=== PATIENT | female | born 1980 | race Caucasian/White ===

== ENCOUNTER 2016-08-28 10:43 | Emergency (ER) | payer MEDICAID ==
[~2016-08-28] VITALS: Ht 160 cm; Wt 54.7 kg
[~2016-08-28 10:43] MED LIST: PRENCAP6 PO
[2016-08-28 10:48] VITALS: BP 115/64; PULSE 83; RESP 16; TEMP 98.7
[2016-08-28 11:42] LABS: GLUCOSE,URINE NEG (NEG); KETONE, URINE NEG (NEG); NITRITE,URINE NEG (NEG); PH, URINE 6.5 (5.0-8.5)
[2016-08-28 11:43] LABS: BLOOD, URINE MOD (NEG)
[2016-08-28 11:46] LABS: METHOD OF COLLECTION CLEAN CATCH
[2016-08-28 11:47] LABS: URINE COLOR STRAW (YELLW/STRAW)
--- NOTE | 2016-08-28 11:58 | PD ---
HPI . Bleeding in Chief Complaint: Related Problem Time Seen by Provider: 10:57 Travel History International Travel<30 days: No Contact w/Intl Traveler<30days: No Traveled to known affect area: No History of Present Illness HPI Patient presents saying that she is 6-7 weeks and she had some mild bleeding 2 days ago. The bleeding has stopped. She reports minimal right- sided pain associated with the bleeding. She describes the bleeding is bright red. She denies any urinary symptoms. She does admit to some nausea and fatigue. She states her last normal menstrual cycle was about 7 weeks ago. She has not done a home test and has not sought any care. [facility] Past Medical History Diminished Hearing: No Immunizations Current: No Tetanus Vaccination: > 5 Years Influenza Vaccination: Yes ?: Not LMP: 07/03/16 : 4 Para: 1 Miscarriage: 2 Past Surgical History Pacemaker: No Social History Alcohol Use: No Tobacco Use: No Substance Use: No Allergies-Medications (Allergen,Severity, Reaction): Coded Allergies: No Known Allergies (Verified , 08/28/16) Reported Meds & Prescriptions Reported Meds & Active Scripts Active No Active Prescriptions or Reported Medications Review of Systems Except as stated in HPI: all other systems reviewed are Neg General / Constitutional: No: Fever, Chills Genitourinary: Positive: Pelvic Pain, Vaginal Bleeding, No: Urgency, Frequency , Dysuria, Dyspareunia, Discharge Physical Exam Narrative GENERAL: Healthy woman in no acute distress. SKIN: Warm and dry. HEAD: Atraumatic. Normocephalic. EYES: Pupils equal and round. ENT: No nasal bleeding or discharge. Mucous membranes pink and moist. NECK: Trachea midline. CARDIOVASCULAR: Regular rate and rhythm. RESPIRATORY: No accessory muscle use. GASTROINTESTINAL: Abdomen soft, non-tender, nondistended. : Normal female. There is no blood or discharge in the vaginal vault. Cervical os is closed. Positive cervical motion tenderness. There is no adnexal tenderness or mass. Uterus is slightly enlarged and nontender. MUSCULOSKELETAL: No obvious deformities. No edema. NEUROLOGICAL: Awake and alert. No obvious cranial nerve deficits. Motor grossly within normal limits. Normal speech. PSYCHIATRIC: Appropriate mood and affect; insight and judgment normal. Data Data Last Documented VS Vital Signs Date Time Temp Pulse Resp B/P Pulse Ox O2 Delivery O2 Flow Rate FiO2 08/28/16 10:48 98.7 83 16 115/64 Orders Beta Hcg (Quant/Titer) (08/28/16 10:57) Urinalysis - C+S If Indicated (08/28/16 10:57) Ed Urine Pregnancytest Poc (08/28/16 10:57) Ed Poc Ultrasound (08/28/16 11:21) Gc And Chlamydia Pcr (08/28/16 11:45) Wet Prep Profile (08/28/16 11:45) Us Pelvis (Ques Preg/Ectopic) (08/28/16 ) Labs Laboratory Tests Test 08/28/16 08/28/16 11:25 11:55 Urine Collection Type CLEAN CATCH Urine Color STRAW Urine Turbidity HAZY Urine pH 6.5 Urine Specific [place] 1.007 Urine Protein NEG mg/dL Urine Glucose (UA) NEG mg/dL Urine Ketones NEG mg/dL Urine Occult Blood MOD Urine Nitrite NEG Urine Bilirubin NEG Urine Leukocyte Esterase TRACE Urine RBC 0-3 /hpf Urine WBC 0-2 /hpf Urine Squamous Epithelial 6-8 /hpf Cells Urine Bacteria FEW /hpf Microscopic Urinalysis Comment CULT NOT INDICATED Urine Collection Time 1125 Human Chorionic Gonadotropin, 229802 MIU/ML Quant Clue Cells (Wet Prep) PRESENT Vaginal Trichomonas (Wet Prep) NONE SEEN Vaginal Yeast (Wet Prep) NONE SEEN MDM Medical Decision Making Medical Screen Exam Complete: Yes Emergency Medical Condition: Yes Differential Diagnosis Differential diagnosis of bleeding in includes but is not limited to physiologic bleeding, spontaneous AB, ectopic , placenta previa Narrative Course Patient presents complaining with an episode of bleeding in . Her blood type from previous records is O+. Quantitative hCG and formal ultrasound are pending. Wet prep and GC/chlamydial DNA probe are also pending. UA shows trace leukocyte esterase and few bacteria. Quantitative hCG is 125K. Wet prep shows clue cells. Last Impressions Pelvis Ultrasound 08/28/16 0000 Signed Impressions: Service Date/Time: Sunday, August 28, 2016 12:45 - CONCLUSION: 1. Twin gestation, both with documented heart tones. Martin Dailey MD Procedures Procedure Narrative Emergency Department Pelvic ultrasound was performed with patient consent. The curvilinear probe was used in the transverse and sagittal views within the suprapubic region revealing positive intrauterine . heart tones are present but not measurable. Diagnosis Primary Impression: Bleeding in early Additional Impression: Twin Qualified Code: O30.001 - Twin gestation in first trimester, unspecified multiple gestation type Scripts No Active Prescriptions or Reported Meds Disposition: 01 DISCHARGE HOME Condition: Stable Liza Dunne MD Aug 28, 2016 11:58
[2016-08-28 12:04] LABS: BACTERIA, URINE FEW /hpf; RBC, URINE 0-3 /hpf (0-3); WBC, URINE 0-2 /hpf (0-5)
[2016-08-28 12:05] LABS: COMMENT (UR) CULT NOT INDICATED; CULTURE IF INDICATED CULT NOT INDICATED
[2016-08-28 12:15] LABS: BETA HCG QUANT 125529 MIU/ML (0-5)
--- NOTE | 2016-08-28 13:25 | RADHPO ---
EXAM DATE/TIME: 08/28/2016 12:45 [place] COMPARISON: No previous studies available for comparison. INDICATIONS : Vaginal bleeding and pelvic pain with . LAB(S): Beta-hC MEDICAL HISTORY : . SURGICAL HISTORY : None. ENCOUNTER: Initial ACUITY: 1 day PAIN SCORE: 3/10 LOCATION: Bilateral pelvis MEASUREMENTS: UTERUS: 11.8 x 7.9 x 4.8 cm ENDOMETRIAL STRIPE: 13 mm RIGHT OVARY: 3.3 x 3.0 x 1.7 cm LEFT OVARY: 2.4 x 1.8 x 1.3 cm FREE FLUID: No FINDINGS: Intrauterine gestational sac with a mean sac diameter corresponding to a gestational age of 7 weeks 3 days. Within the gestational sac, yolk sac is present as well as a pole with a crown-rump soledad th measurement corresponding to an estimated gestational age of 8 weeks. An additional gestational sa c containing pole is present with an estimated gestational age of 7 weeks 4 days based on crown -rump length measurement. heart rate of 172.3 beats per minute and 164.6 beats per minute respe ctively. The ovaries are normal. There is no free fluid seen. CONCLUSION: 1. Twin gestation, both with documented heart tones. Martin Dailey MD on August 28, 2016 at 13:21 Board Certified Radiologist. This report was verified electronically.
[2016-08-28 14:00] VITALS: BP 144/79; PULSE 98; RESP 14; O2SAT 100
[2016-08-28] MEDS ORDERED: MACR100C2 PO (14:01)
[2016-08-28] MEDS ORDERED: METR250 PO (14:01)
[2016-08-28 18:13] LABS: CHLAMYDIA PCR NOT DETECTED (NOT DETECT); NEISSERIA PCR NOT DETECTED (NOT DETECT)
== END 2016-08-28 14:21 | disposition home or self-care (01) ==
LOC: PHED 10:43
DX: O20.9 Hemorrhage in early pregnancy, unspecified (principal); O30.001 Twin pregnancy, unspecified number of placenta and unspecified number of amniotic sacs, first trimester; Z3A.01 Less than 8 weeks gestation of pregnancy
CPT/HCPCS: 76700; 81001; 84702; 84703; 87210; 87491; 87591

== ENCOUNTER → 2016-10-04 | Outpatient (CLI) | payer SELFPAY | LOC: HPND 12:28 | PROVIDERS: ATTEND Obstetrics & Gynecology | DX: O09.521 Supervision of elderly multigravida, first trimester (principal); O30.031 Twin pregnancy, monochorionic/diamniotic, first trimester; Z3A.13 13 weeks gestation of pregnancy | CPT/HCPCS: 76801 ==

== ENCOUNTER → 2016-11-15 | Outpatient (CLI) | payer SELFPAY | LOC: HPND 08:40 | PROVIDERS: ATTEND Obstetrics & Gynecology | DX: O28.0 Abnormal hematological finding on antenatal screening of mother (principal); O09.522 Supervision of elderly multigravida, second trimester; O30.002 Twin pregnancy, unspecified number of placenta and unspecified number of amniotic sacs, second trimester | CPT/HCPCS: 76811 ==

== ENCOUNTER 2017-04-16 23:26 | Inpatient (IN) | payer SELFPAY ==
[~2017-04-16] VITALS: Ht 160 cm; Wt 72.0 kg
[2017-04-17] VITALS (42 sets, daily range): BP systolic 87–166; BP diastolic 51–110; PULSE 53–205; RESP 16–20; TEMP 97.9–98.8
[2017-04-17] MEDS ORDERED: LACTATED RINGER'S 1000 ML INJ 1,000 ML IV SCH (00:32)
[2017-04-17] MEDS ORDERED: LACTATED RINGER'S 1000 ML INJ 1,000 ML IV PRN (00:32)
[2017-04-17 00:43] LABS: AUTOMATED NEUTROPHIL # 6.4 TH/MM3 (1.8-7.7); BASOPHIL # 0.1 TH/MM3 (0-0.2); BASOPHIL % 0.5 % (0.0-2.0); EOSINOPHIL # 0.1 TH/MM3 (0-0.4); EOSINOPHIL % 0.7 % (0.0-4.0); HEMATOCRIT 33.2 % (35.0-46.0); HEMO FLAGS DIFF FINAL; LYMPH % 28.4 % (9.0-44.0); LYMPHOCYTE # 2.8 TH/MM3 (1.0-4.8); MEAN CELL VOLUME 92.8 FL (80.0-100.0); MEAN CORPUSCULAR HEMOGLOBIN 32.8 PG (27.0-34.0); MEAN CORPUSCULAR HGB CONC 35.4 % (32.0-36.0); MONO % 6.6 % (0.0-8.0); NEUT % 63.8 % (16.0-70.0); PLATELET COUNT 254 TH/MM3 (150-450); RED BLOOD COUNT 3.58 MIL/MM3 (4.00-5.30); RED CELL DISTRIBUTION WIDTH 12.9 % (11.6-17.2)
[2017-04-17 00:44] LABS: BLOOD, URINE NEG (NEG); GLUCOSE,URINE NEG (NEG); KETONE, URINE NEG (NEG); NITRITE,URINE NEG (NEG); SQUAMOUS EPITHELIAL CELL URINE <1 /hpf (0-5); URINE COLOR COLORLESS (YELLW/STRAW)
[2017-04-17 00:45] LABS: COMMENT (UR) CULT NOT INDICATED; CULTURE IF INDICATED CULT NOT INDICATED
[2017-04-17] MEDS ORDERED: LIDOCAINE HCL 1% 50 ML VIAL INFIL PRN (00:45)
[2017-04-17] MEDS ORDERED: OXYTOCIN 30 UNITS-500ML PREMIX 500 ML IV ONE (00:45)
[2017-04-17] MEDS ORDERED: CITRIC ACID-SODIUM CITRATE LIQ 30 ML UDC PO SCH (00:45)
[2017-04-17] MEDS ORDERED: MINERAL OIL 10 ML VIAL TOPICAL PRN (00:45)
[2017-04-17] MEDS ORDERED: SODIUM CHLORID 0.9% 500 ML INJ 500 ML IV PRN (00:45)
[2017-04-17] MEDS ORDERED: LIDOCAINE HCL 1% 50 ML VIAL I-DERMAL PRN (00:45)
--- NOTE | 2017-04-17 00:46 | HHI.HP ---
HPI Chief Complaint Patient presents for labor induction for postdates Date Seen: Apr 17, 2017 Time Seen: 00:40 Travel History International Travel<30 Days: No Contact w/Intl Traveler<30Days: No Known Affected Area: No History of Present Illness HPI Patient is 36-year-old G 2 P1 at 41 weeks who [facility] and is presenting now for induction of labor due to postdates having an inducible cervix, heart rate tracing is reactive and she is having occasional contractions. Weeks Gestation: 41 Para: 1 : 2 History Obstetric History Obstetric History One vaginal delivery Social History Alcohol Use: No Tobacco Use: No Substance Abuse: No Allergies-Medications (Allergen,Severity, Reaction): Coded Allergies: No Known Allergies (Verified Adverse Reaction, Unknown, 04/16/17) Home Meds Active Scripts W/O Vit A W/ Fe Fumar (Citranatal [place]) 27-1-260 Mg Cap Prov:Nathanael Leo MD 09/20/16 Review of Systems General / Constitutional: No: Fever, Weight Gain, Chills, Other Eyes: No: Diploplia, Blurred Vision, Visual changes, Pain, Photophobia HENT: No: Headaches, Vertigo, Lightheadedness Cardiovascular: No: Irregular Rhythm, Chest Pain or Discomfort, Palpitations, Tachycardia, Syncope, Varicosities, Edema, Cyanosis Respiratory: No: Cough, Short of Breath, Other Gastrointestinal: No: Nausea, Vomiting, Diarrhea Genitourinary: No: Decreased Urinary Output, Oliguria Musculoskeletal: No: Limited ROM, Weakness, Cramping, Edema, Pain Skin: No Rash, No Itching, No Dryness, No Lumps, No Change in Pigmentation, No Change in Nails, No Alopecia, No Lesions Neurologic: No: Weakness, Dizziness, Syncope, Focal Abnormalities, Coordination Problem, Headache, Slurred Speech, Seizures Psychiatric: No: Depression, Suicidal Ideations, Homicidal Ideation Endocrine: No: Heat Intolerance, Cold Intolerance, Polydipsia, Polyuria, Other Physical Exam Narrative GENERAL: Well-nourished, well-developed patient. SKIN: Warm and dry. HEAD: Normocephalic and atraumatic. EYES: No scleral icterus. No injection or drainage. ENT: No nasal drainage noted. Mucous membranes pink. Airway patent. NECK: Supple, trachea midline. No JVD. CARDIOVASCULAR: Regular rate and rhythm without murmurs, gallops, or rubs. RESPIRATORY: Breath sounds equal bilaterally. No accessory muscle use. BREASTS: Bilateral exam showed no masses , no retractions, no nipple discharge. ABDOMEN/GI: Abdomen soft, non-tender, bowel sounds present, no rebound, no guarding Gravid to [41-] weeks size Fundal Height: [37-] GENITOURINARY: External Genitalia: intact and normal in appearance BUS glands: [-] Cervix: [-] Dilatation: [-5] Effacement: [-70] Station: [-1] Presentation: [vtx-] Membranes: [intact ] Uterine Contractions: [-Occasional] FHT's: Category: [1-] Baseline: [-133] Reactive: [yes-] Variability: [-mod] Decels: [0-] EXTREMITIES: No cyanosis or edema. BACK: Nontender without obvious deformity. No CVA tenderness. NEUROLOGICAL: Awake and alert. Motor and sensory grossly within normal limits. Five out of 5 muscle strength in all muscle groups. Normal speech. Caprini VTE Risk Assessment Caprini VTE Risk Assessment: No/Low Risk (score <= 1) Caprini Risk Assessment Model Point Value = 1 Point Value = 2 Point Value = 3 Point Value = 5 Age 41-60 Minor surgery BMI > 25 kg/m2 Swollen legs Varicose veins or History of unexplained or recurrent spontaneous Oral contraceptives or hormone replacement Sepsis (< 1 month) Serious lung disease, including pneumonia (< 1 month) Abnormal pulmonary function Acute myocardial infarction Congestive heart failure (< 1 month) History of inflammatory bowel disease Medical patient at bed rest Age 61-74 Arthroscopic surgery Major open surgery (> 45 min) Laparoscopic surgery (> 45 min) Malignancy Confined to bed (> 72 hours) Immobilizing plaster cast Central venous access Age >= 75 History of VTE Family history of VTE Factor V Leiden Prothrombin 11308K Lupus anticoagulant Anticardiolipin antibodies Elevated serum homocysteine Heparin-induced thrombocytopenia Other congenital or acquired thrombophilia Stroke (< 1 month) Elective arthroplasty Hip, pelvis, or leg fracture Acute spinal cord injury (< 1 month) Prophylaxis Regimen Total Risk Factor Score Risk Level Prophylaxis Regimen 0-1 Low Early ambulation 2 Moderate Order ONE of the following: *Sequential Compression Device (SCD) *Heparin 5000 units SQ BID 3-4 Higher Order ONE of the following medications: *Heparin 5000 units SQ TID *Enoxaparin/Lovenox 40 mg SQ daily (WT < 150 kg, CrCl > 30 mL/min) *Enoxaparin/Lovenox 30 mg SQ daily (WT < 150 kg, CrCl > 10-29 mL/min) *Enoxaparin/Lovenox 30 mg SQ BID (WT < 150 kg, CrCl > 30 mL/min) AND/OR *Sequential Compression Device (SCD) 5 or more Highest Order ONE of the following medications: *Heparin 5000 units SQ TID (Preferred with Epidurals) *Enoxaparin/Lovenox 40 mg SQ daily (WT < 150 kg, CrCl > 30 mL/min) *Enoxaparin/Lovenox 30 mg SQ daily (WT < 150 kg, CrCl > 10-29 mL/min) *Enoxaparin/Lovenox 30 mg SQ BID (WT < 150 kg, CrCl > 30 mL/min) AND *Sequential Compression Device (SCD) Data Data Orders Orders Admit To Inpatient (04/17/17 ) Vital Signs (Adult) .Per protocol (04/17/17 00:32) Heart (04/17/17 00:32) Amnioinfusion (04/17/17 00:32) Urinary Catheter Management .ONCE (04/17/17 00:32) Diet Liquid (04/17/17 Breakfast) Lactated Ringer's 1000 Ml Inj (Lr 1000 M (04/17/17 00:32) Lactated Ringer's 1000 Ml Inj (Lr 1000 M (04/17/17 00:32) Sodium Chlorid 0.9% 500 Ml Inj (Ns 500 M (04/17/17 00:45) Sodium Chlor 0.9% 1000 Ml Inj (Ns 1000 M (04/17/17 00:52) Lidocaine 1% Inj (50 Ml) (Xylocaine 1% I (04/17/17 00:45) Citric Acid-Sodium Citrate Liq (Bicitra (04/17/17 00:45) Fentanyl Inj (Fentanyl Inj) (04/17/17 00:45) Fentanyl Inj (Fentanyl Inj) (04/17/17 00:45) Complete Blood Count With Diff (04/17/17 00:32) Hold Clot (04/17/17 00:32) Abo/Rh Blood Type (04/17/17 00:32) Urinalysis - C+S If Indicated (04/17/17 00:32) Drug Screen, Random Urine (04/17/17 00:32) Resp Oxygen Non Rebreathe Mask (04/17/17 ) ^ Epidural / Intrathecal Infus (04/17/17 00:32) Oxytocin 30 Units-500ml Premix (Pitocin (04/17/17 00:45) Lidocaine 1% Inj (50 Ml) (Xylocaine 1% I (04/17/17 00:45) Light Mineral Oil (Muri-Lube Oil) (04/17/17 00:45) Specimen To Be Collected PRN (04/17/17 00:32) Specimen To Be Collected PRN (04/17/17 00:32) Group B Strep: Negative Labs Laboratory Tests Test 04/16/17 23:30 04/16/17 23:50 Assessment/Plan Assessment and Plan Patient a 36-year-old at 41 weeks for postdates induction, she is very inducible cervix 5 cm 70% -1. Membranes are intact. heart rate tracing is reactive. Contractions are occasional sporadic at this time. Plan is to allow patient to contract tonight on her own and in the morning of artificially rupture membranes augment labor as needed and anticipate vaginal delivery William Camacho II, MD Apr 17, 2017 00:46
[2017-04-17] MEDS ORDERED: SODIUM CHLOR 0.9% 1000 ML INJ 1,000 ML IV PRN (00:52)
[2017-04-17] MEDS ORDERED: OXYTOCIN 30 UNITS-500ML PREMIX 500 ML IV SCH ×2 (07:30→15:15)
--- NOTE | 2017-04-17 08:19 | PD.LABORPN ---
Subjective Subjective 36YO @ 41/0 weeks started induction of labor with AROM @ 0810hours Objective Vital Signs Vital Signs Date Time Temp Pulse Resp B/P (MAP) Pulse Ox O2 Delivery O2 Flow Rate FiO2 04/17/17 07:27 20 04/17/17 07:27 72 116/67 (83) 04/17/17 05:30 18 04/17/17 05:00 18 04/17/17 04:30 18 04/17/17 04:00 18 04/17/17 03:30 18 04/17/17 03:00 18 04/17/17 02:30 18 04/17/17 02:00 18 04/17/17 01:23 18 04/17/17 01:00 18 04/17/17 00:30 98.1 18 Objective Pelvic Exam: Cervix: posterior Dilatation: 5-6cm Effacement: 70% Station: -3 Presentation: vtx Membranes: AROM at 0810 Uterine Contractions: irregular 4-5 mins FHT's: Category: - Baseline: [-] Reactive: [-] Variability: [-] Decels: [-] Weeks Gestation: 41 Artificial ROM date: Apr 17, 2017 Artifical ROM time: 08:10 Assessment/Plan Assessment and Plan 36YO @41/1 weeks AROM this morning at 0810, VSS, IOL, 5cm dilated, 70%, -2 station, vtx, reactive Cat I strip BL 140, moderate variability with irregular contractions 4-5 mins, no decels PLAN: -IOL -AROM at 0810 04/17 - monitoring -Vital signs Neftali Crain MD R1 Apr 17, 2017 08:19
--- NOTE | 2017-04-17 13:14 | PD.LABORPN ---
Subjective Subjective Patient is feeling pressure like she needs to push. She would like an epidural. Objective Vital Signs Vital Signs Date Time Temp Pulse Resp B/P (MAP) Pulse Ox O2 Delivery O2 Flow Rate FiO2 04/17/17 11:31 82 04/17/17 11:31 109/58 (75) 04/17/17 11:30 98.8 20 04/17/17 11:28 100 114/91 (99) 04/17/17 08:42 97.9 20 04/17/17 08:31 72 137/95 (109) 04/17/17 08:14 72 124/74 (91) 04/17/17 07:27 20 04/17/17 07:27 72 116/67 (83) 04/17/17 05:30 18 Objective Pelvic Exam: Cervix: posterior Dilatation: 7-8cm Effacement: 100% Station: 0 Presentation: Cephalic Membranes: AROM at 0810 Uterine Contractions: every 1-2 mins FHT's: Category: II Baseline: 150 Reactive: Up to 155 Variability: Moderate Decels: Variable Weeks Gestation: 41 Artificial ROM date: Apr 17, 2017 Artifical ROM time: 08:10 Assessment/Plan Problem List: (1) Encounter for induction of labor ICD Codes: Z34.90 - Encounter for supervision of normal , unspecified , unspecified trimester (2) Post-dates ICD Codes: O48.0 - Post-term Assessment and Plan 36YO @41/1 weeks AROM this morning at 0810 -Cervical exam: 7-8/100%/0 - heart tones category II -Pt would like an epidural -Continue routine care -Expect vaginal delivery Eko,Ny Barker MD R2 Apr 17, 2017 13:14
[2017-04-17] MEDS ORDERED: ONDANSETRON HCL 4 MG/2 ML VIAL ONE (13:22)
[2017-04-17] MEDS ORDERED: fentaNYL 2MCG-BUPIV 0.125% INJ 100 ML ONE (13:41)
[2017-04-17] MEDS ORDERED: ePHEDrine/NS 25 MG/5 ML SYR ONE (13:41)
[2017-04-17] MEDS ORDERED: fentaNYL 2MCG-BUPIV 0.125% 100 ML EPIDURAL SCH (14:30)
[2017-04-17] MEDS ORDERED: ePHEDrine/NS 25 MG/5 ML SYR IV PUSH PRN (14:30)
[2017-04-17] MEDS ORDERED: DO NOT ADMINISTER ANTICOAGULANTS PRN (14:30)
[2017-04-17] MEDS ORDERED: NO SYSTEM NARCOTICS PRN (14:30)
--- NOTE | 2017-04-17 15:05 | PD.OB.DELI ---
Weeks gestation: 41 Gest age assessed date: Apr 17, 2017 Gest age assessed time: 00:46 Pt started active labor?: No Medical induction of labor?: Yes Medical induction start date: Apr 17, 2017 Artificial rupture of membrane: Yes Artificial ROM date: Apr 17, 2017 Artifical ROM time: 08:10 Anesthesia: Epidural Episiotomy: None Vaginal Delivery: Normal, Spontaneous Presentation: Occiput anterior Nuchal Cord: x1 Delayed cord clamping (45 sec): No : Female Delivery date: Apr 17, 2017 Delivery time: 14:47 One Minute : 8 Five Minute : 9 Weight: 7lbs 3 oz Placenta: Spontaneous delivery, Intact, 3 vessel cord Laceration: No lacerations Estimated blood loss: 50cc Additional Information Delivery performed by Dr. Mo, supervised by Ny Marcos MD Apr 17, 2017 15:05
[2017-04-17] MEDS ORDERED: IBUPROFEN 800 MG TAB PO PRN (15:15)
[2017-04-17] MEDS ORDERED: BENZOCAINE 20% TOPICAL SPRAY 60 ML CAN TOPICAL PRN (15:15)
[2017-04-17] MEDS ORDERED: WITCH HAZEL 50%/GLYCERIN 12.5% 40 PAD JAR TOPICAL PRN (15:15)
[2017-04-17] MEDS ORDERED: ZOLPIDEM TARTRATE 5 MG TAB PO PRN (15:15)
[2017-04-17] MEDS ORDERED: ALUMINUM/MAGNESIUM/SIMETH 30 ML CUP PO PRN (15:15)
[2017-04-17] MEDS ORDERED: ONDANSETRON ODT 4 MG TAB PO PRN (15:15)
[2017-04-17] MEDS ORDERED: DOCUSATE SODIUM 50 MG/SENNA 8.6 MG TAB PO PRN (15:15)
[2017-04-17] MEDS ORDERED: SODIUM CHLORIDE 0.9% FLUSH 10 ML FLUSH IV FLUSH PRN (15:15)
[2017-04-17] MEDS ORDERED: ACETAMINOPHEN 325 MG TAB PO PRN (15:15)
[2017-04-17] MEDS ORDERED: MEASLES, MUMPS, RUBELLA VACCINE 0.5 ML VIAL SQ ONE (16:00)
[2017-04-17] MEDS ORDERED: DIPHTH/TETANUS/ACEL PERTUSSIS (BOOSTER) 0.5 ML VIAL/PFS IM ONE (16:00)
[2017-04-17] MEDS ORDERED: SODIUM CHLORIDE 0.9% FLUSH 10 ML FLUSH IV FLUSH SCH (21:00)
[2017-04-18 08:52] VITALS: BP 134/60; PULSE 78; RESP 18; TEMP 98.1
--- NOTE | 2017-04-18 10:17 | HHI.OB ---
Subjective Post Day: 1 Remarks Ms Swanson is a 36YO PPD#1 from at 41/0 weeks who slept well overnight with no acute events. Pain is controlled PRN, ambulating w/o dizziness , tolerating PO, voiding, but no flatus or BM yet. Lochia is normal volume. Denies CP, SOB, N/V/D, and DVT pain. Objective Vitals/I&O Vital Signs Date Time Temp Pulse Resp B/P (MAP) Pulse Ox O2 Delivery O2 Flow Rate FiO2 04/18/17 08:52 98.1 18 04/18/17 08:52 78 134/60 (84) 04/17/17 19:25 98.6 86 16 123/71 (88) 04/17/17 17:50 98.6 84 16 114/63 (80) 04/17/17 16:04 20 04/17/17 16:01 53 117/77 (90) 04/17/17 15:49 20 04/17/17 15:48 86 87/51 (63) 04/17/17 15:35 20 04/17/17 15:31 86 94/68 (77) 04/17/17 15:20 20 04/17/17 15:05 98.8 20 04/17/17 15:00 92 119/81 (94) 04/17/17 14:41 131/110 (117) 04/17/17 14:36 73 115/100 (105) 04/17/17 14:31 195 166/81 (109) 04/17/17 14:25 85 121/85 (97) 04/17/17 14:21 129/60 (83) 04/17/17 14:15 91 132/96 (108) 04/17/17 14:10 66 123/67 (85) 04/17/17 14:06 205 119/82 (94) 04/17/17 14:00 77 127/69 (88) 04/17/17 13:55 86 121/76 (91) 04/17/17 13:51 66 133/71 (91) 04/17/17 13:36 20 04/17/17 13:31 87 99/78 (85) 04/17/17 11:31 82 04/17/17 11:31 109/58 (75) 04/17/17 11:30 98.8 20 04/17/17 11:28 100 114/91 (99) Objective Remarks GENERAL: Well-nourished, well-developed patient in NAD. CARDIOVASCULAR: Regular rate and rhythm without murmur, gallop, or rub. RESPIRATORY: Breath sounds equal bilaterally. No accessory muscle use. ABDOMEN/GI: Abdomen soft, non-tender, nondistended. Fundus: Firm, non-tender at umbilicus. GENITOURINARY: Light to moderate bleeding. EXTREMITIES: No cyanosis or edema, non-tender, without signs of DVT. Medications and IVs Current Medications Medications (Trade) Dose Ordered Sig/Ibrahima Route Start Time Stop Time Status Last Admin (NS Flush) 2 ml BID IV FLUSH 04/17/17 21:00 (NS Flush) 2 ml UNSCH PRN IV FLUSH 04/17/17 15:15 (Tylenol) 650 mg Q4H PRN PO 04/17/17 15:15 (Motrin) 800 mg Q8H PRN PO 04/17/17 15:15 04/18/17 09:47 (Americaine 20% Top Spr) 1 spray Q4H PRN TOPICAL 04/17/17 15:15 (Tucks Pads) 1 applic QID PRN TOPICAL 04/17/17 15:15 (Kellie-Colace) 2 tab Q12H PRN PO 04/17/17 15:15 (Ambien) 5 mg HS PRN PO 04/17/17 15:15 (Mag-Al Plus Susp Liq) 15 ml Q8H PRN PO 04/17/17 15:15 (Zofran Odt) 4 mg Q6H PRN PO 04/17/17 15:15 Assessment/Plan Problem List: (1) Encounter for induction of labor ICD Codes: Z34.90 - Encounter for supervision of normal , unspecified , unspecified trimester (2) Post-dates ICD Codes: O48.0 - Post-term Assessment and Plan 36YO delivered via w/IOL at 41 weeks and now PPD#1, pain controlled, ambulating, voiding, taking PO but no flatus or BM yet. Lochia normal in volume. VSS. Physical exam benign. Denies calf pain, shortness of breath, or cough. Otherwise, she is doing well this morning and has no other complaints. PLAN: -Continue routine care -Motrin PRN for pain -Pericolase PRN for constipation -Encouraged OOB. Advised pelvic rest for 6 wks -Will need a follow-up appointment in 6 wks for post- check -Pt wants to defer a decision on control until she meets with her ETHYLBENZENE CRACKING SUPERVISOR in 6 weeks Discussed with Elicia Castillo and Neftali Christine MD R1 Apr 18, 2017 10:17
--- NOTE | 2017-04-19 07:16 | HHI.OB ---
Subjective Post Day: 2 Remarks Ms Swanson had no acute events overnight. Pt states she had some bilateral leg swelling without pain and some breast tenderness following colostrum being expressed via pump. Decreased lochia with 2 clots. Pain controlled w/ibuprofen, ambulating, voiding, flatus but no BM, tolerating PO. Denies CP, SOB, N/V/D and DVT pain. Objective Vitals/I&O Vital Signs Date Time Temp Pulse Resp B/P (MAP) Pulse Ox O2 Delivery O2 Flow Rate FiO2 04/18/17 08:52 98.1 18 04/18/17 08:52 78 134/60 (84) Objective Remarks GENERAL: Well-nourished, well-developed patient in NAD holding her baby. CARDIOVASCULAR: Regular rate and rhythm without murmur, gallop, or rub. RESPIRATORY: Breath sounds equal bilaterally. No accessory muscle use. ABDOMEN/GI: Abdomen soft, non-tender, nondistended. Fundus: Firm, non-tender below umbilicus. GENITOURINARY: Light to moderate bleeding. EXTREMITIES: No cyanosis or edema, non-tender, without signs of DVT. Medications and IVs Current Medications Medications (Trade) Dose Ordered Sig/Ibrahima Route Start Time Stop Time Status Last Admin (NS Flush) 2 ml BID IV FLUSH 04/17/17 21:00 (NS Flush) 2 ml UNSCH PRN IV FLUSH 04/17/17 15:15 (Tylenol) 650 mg Q4H PRN PO 04/17/17 15:15 (Motrin) 800 mg Q8H PRN PO 04/17/17 15:15 04/18/17 09:47 (Americaine 20% Top Spr) 1 spray Q4H PRN TOPICAL 04/17/17 15:15 (Tucks Pads) 1 applic QID PRN TOPICAL 04/17/17 15:15 (Kellie-Colace) 2 tab Q12H PRN PO 04/17/17 15:15 (Ambien) 5 mg HS PRN PO 04/17/17 15:15 (Mag-Al Plus Susp Liq) 15 ml Q8H PRN PO 04/17/17 15:15 (Zofran Odt) 4 mg Q6H PRN PO 04/17/17 15:15 Assessment/Plan Problem List: (1) Encounter for induction of labor ICD Codes: Z34.90 - Encounter for supervision of normal , unspecified , unspecified trimester (2) Post-dates ICD Codes: O48.0 - Post-term Assessment and Plan 36YO delivered via w/IOL at 41 weeks and now PPD#2, pain controlled, ambulating, voiding, taking PO, +flatus but no BM yet. Lochia decreased with one large and one small clot. VSS. Physical exam benign. Reports breast tenderness and calf swelling, but denies calf pain, shortness of breath, or cough. Otherwise, she is doing well this morning and is excited to discharge today. PLAN: -Continue routine care -Motrin PRN for pain -Pericolase PRN for constipation -Encouraged OOB. Advised pelvic rest for 6 wks -Will need a follow-up appointment in 6 wks for post- check -Pt wants to defer a decision on control until she meets with her BOILER WASHER in [address] Mo and Neftali Clinton MD R1 Apr 19, 2017 07:16
--- NOTE | 2017-04-19 07:43 | HHI.DCPOC ---
Discharge Care Plan Report Symptoms to Your Doctor -Temperature above 100.5 degrees -Redness, of incision or excessive or foul smelling drainage -Unusual pain or calf pain -Increased vaginal bleeding -Painful or difficulty urinating -Feelings of extreme sadness or anxiety after 2 weeks Goals to Promote Your Health * To prevent worsening of your condition and complications, please drink plenty of fluids to stay hydrated; take ibuprofen as needed for pain. * To maintain your health at the optimal level, please schedule a follow up appointment with your OB-TRAFFIC WORKER doctor in 6 weeks. Also, do not place anything in your vagina for 6 weeks. That means no sexual intercourse for the next 6 weeks. Directions to Meet Your Goals Take your medications as prescribed Follow your dietary instruction Follow activity as directed Ensure plenty of rest for recovery Drink fluids for hydration Keep your appointments as scheduled Take your immunizations and boosters as scheduled If your symptoms worsen call your PCP, if no PCP go to Urgent Care Center or Emergency Room Smoking is Dangerous to Your Health. Avoid second hand smoke Call the 24-hour crisis hotline for domestic abuse at Neftali Crain MD R1 Apr 19, 2017 07:43
== END 2017-04-19 13:05 | disposition home or self-care (01) | DRG 775 ==
LOC: H2EA 23:26 → H1EA 04-17 17:47
PROVIDERS: ADMIT Obstetrics & Gynecology Maternal & Fetal Medicine; ATTEND Obstetrics & Gynecology Maternal & Fetal Medicine
PROC: 3E0P3VZ Introduction of Hormone into Female Reproductive, Percutaneous Approach (ICD-10-PCS; 2017-04-16)
PROC: 10E0XZZ Delivery of Products of Conception, External Approach (ICD-10-PCS; principal; 2017-04-17)
PROC: 10907ZC Drainage of Amniotic Fluid, Therapeutic from Products of Conception, Via Natural or Artificial Opening (ICD-10-PCS; 2017-04-17)
DX: O48.0 Post-term pregnancy (principal); O69.81X0 Labor and delivery complicated by cord around neck, without compression, not applicable or unspecified; Z37.0 Single live birth; Z3A.41 41 weeks gestation of pregnancy
CPT/HCPCS: 80307; 81001; 85025; 86900; 86901; 90715; J2405; J2590; J3010; J7120

== ENCOUNTER 2017-04-20 13:10 | Emergency (ER) | payer SELFPAY ==
[~2017-04-20] VITALS: Ht 160 cm; Wt 65.0 kg
[2017-04-20 13:12] VITALS: BP 140/84; PULSE 88; RESP 18; TEMP 99.2; O2SAT 99
--- NOTE | 2017-04-20 15:23 | PD ---
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 She was discharged home yesterday, and noticed this last night. She denies any pain. She has had bleeding, but this has slowed down. She is not having any issues urinating. She says it only comes out when she stands and goes back in when she lays down. PFSH Past Medical History Diminished Hearing: No Immunizations Current: No ?: Not LMP: Mar DELIVERED : 4 Para: 2 Miscarriage: 2 Past Surgical History Pacemaker: No Social History Alcohol Use: No Tobacco Use: No Substance Use: No Allergies-Medications (Allergen,Severity, Reaction): Coded Allergies: No Known Allergies (Verified Adverse Reaction, Unknown, 04/16/17) Reported Meds & Prescriptions Reported Meds & Active Scripts Active No Active Prescriptions or Reported Medications Review of Systems Except as stated in HPI: all other systems reviewed are Neg General / Constitutional: No: Fever, Chills HENT: No: Headaches, Lightheadedness Cardiovascular: No: Chest Pain or Discomfort Respiratory: No: Shortness of Breath Gastrointestinal: No: Nausea, Vomiting, Abdominal Pain Genitourinary: No: Dysuria Skin: No Rash, No Change in Pigmentation Neurologic: No: Weakness, Dizziness Physical Exam Narrative GENERAL: Awake and alert, in no acute distress. SKIN: Focused skin assessment warm/dry. HEAD: Atraumatic. Normocephalic. EYES: Pupils equal and round. No scleral icterus. ENT: Mucous membranes pink and moist. NECK: Trachea midline. No JVD. CARDIOVASCULAR: Regular rate and rhythm. No murmur appreciated. RESPIRATORY: No accessory muscle use. Clear to auscultation. Breath sounds equal bilaterally. GASTROINTESTINAL: Abdomen soft, non-tender, nondistended. : Exam performed in the presence of the nurse. While laying flat, there are no abnormalities. After standing, the cervix prolapsed, but was easily reduced. MUSCULOSKELETAL: No obvious deformities. No clubbing. No cyanosis. No edema. NEUROLOGICAL: Awake and alert. No obvious cranial nerve deficits. Motor grossly within normal limits. Normal speech. PSYCHIATRIC: Appropriate mood and affect; insight and judgment normal. Data Data Last Documented VS Vital Signs Date Time Temp Pulse Resp B/P (MAP) Pulse Ox O2 Delivery O2 Flow Rate FiO2 04/20/17 13:12 99.2 88 18 140/84 (102) 99 Room Air MDM Medical Decision Making Medical Screen Exam Complete: Yes Emergency Medical Condition: Yes Medical Record Reviewed: Yes Differential Diagnosis Prolapsed uterus versus prolapsed cervix versus scar tissue Narrative Course Patient is a 36-year-old female who comes in because she has noticed something protruding from her vagina. Exam shows a prolapsed cervix that is easily reducible. I spoke with Dr. Mondragon of OB who advises that this can happen after giving and could resolve within the next 3 weeks. I advised the patient of this, and advised her to follow-up with her OB. Advised to return any time for any worsening symptoms. Diagnosis Primary Impression: Cervical prolapse Patient Instructions: General Instructions, Uterine Prolapse (ED) Additional Instructions: Follow-up with gynecology. Return to the emergency department as needed for any worsening symptoms. Scripts No Active Prescriptions or Reported Meds Disposition: 01 DISCHARGE HOME Condition: Stable Kathy Albert MD Apr 20, 2017 15:23
== END 2017-04-20 15:38 | disposition home or self-care (01) ==
LOC: NEPD 13:10
DX: N81.2 Incomplete uterovaginal prolapse (principal)
CPT/HCPCS: 99282